=== PATIENT | female | born 1930 | race Caucasian/White ===

== ENCOUNTER 2020-07-04 05:06 | Inpatient (IN) | payer MEDICARE, BC ==
[2020-06-27 15:46] LABS: BASOPHILS % (AUTO) 0.6 % (0-1); EOSINOPHILS # (AUTO) 0.3 X10'3 (0-0.9); EOSINOPHILS % (AUTO) 3.4 % (0-6); LYMPHOCYTES % (AUTO) 24.8 % (21-51); MEAN CORPUSCULAR HEMOGLOBIN 31.4 PG (27.0-31.0); MEAN CORPUSCULAR HGB CONC 33.8 g/dL (33.0-36.5); MEAN PLATELET VOLUME 7.5 FL (7.4-10.4); MONOCYTES # (AUTO) 0.8 X10'3 (0-0.9); MONOCYTES % (AUTO) 9.8 % (2-12); NEUTROPHILS # (AUTO) 5.1 X10'3 (1.8-7.7); NEUTROPHILS % (AUTO) 61.4 % (42-75); PRE OP HEMATOCRIT 40.7 % (35.0-45.0); PRE OP HEMOGLOBIN 13.8 g/dL (12.0-16.0); PRE OP PLATELET COUNT 252 X10'3 (140-440); RED BLOOD COUNT 4.38 X10'6 (4.20-5.60); RED CELL DISTRIBUTION WIDTH 13.3 % (11.5-14.5)
[2020-06-27 16:04] LABS: ALBUMIN/GLOBULIN RATIO 1.1 (1.1-1.5); ALKALINE PHOSPHATASE 97 IU/L (46-116); BLOOD UREA NITROGEN 26 MG/DL (7-18); BUN/CREATININE RATIO 19.5 (6.6-38.0); CALCIUM 10.1 MG/DL (8.5-10.1); CHLORIDE 107 MMOL/L (99-107); CREATININE 1.33 MG/DL (0.40-0.90); PRE OP ALT 27 U/L (30-65); PRE OP ANION GAP 9 (8-16); PRE OP AST 22 U/L (10-37); PRE OP BILIRUB, TOTAL 0.5 MG/DL (0.0-1.0); PRE OP GLUCOSE 125 MG/DL (70-104); PRE OP POTASSIUM 4.2 MMOL/L (3.4-5.1); PRE OP SODIUM 143 MMOL/L (135-145); TOTAL CARBON DIOXIDE 27.4 MMOL/L (24-32); TOTAL PROTEIN 7.8 G/DL (6.4-8.2); eGFR 38 ML/MIN
[2020-07-04] VITALS (19 sets, daily range): BP systolic 111–184; BP diastolic 60–95
[~2020-07-04] VITALS: Ht 172.7 cm; Wt 76.7 kg
[~2020-07-04 05:06] MED LIST: ASCO-336 PO; CALC-336 PO; CHOL20004 PO; FLAX100015 PO; GABA600T13 PO; LACT1CAP65 PO; MULT-1085 PO; VITA-268 PO; VITA400C67 PO; XAL0.005OS EACHEYE; ringers solution, lacted 1,000 ML IV SCH
[2020-07-04] MEDS ORDERED: famotidine 20mg tablet PO ONE (05:30)
[2020-07-04] MEDS ORDERED: NORMAL SALINE IV ONE ×5 (05:30→12:35)
[2020-07-04] MEDS ORDERED: vancomycin 1,500 MG in NS 300ml IV soln IV ONE (05:30)
[2020-07-04] MEDS ORDERED: TRANEXAMIC ACID IV ONE ×5 (05:30→12:35)
[2020-07-04] MEDS ORDERED: ceFAZolin 2gm in dextrose, iso 50 ML IV ONE (05:30)
[2020-07-04] MEDS ORDERED: LIDOcaine 1% (10mg/ml) 2ml vial ONE (06:04)
--- NOTE | 2020-07-04 06:30 | NUR ---
DR FORTUNE AT THE PATIENT'S BEDSIDE. VISUALIZED RIGHT LITTLE TOE WHERE THE TOE NAIL FELL OFF LAST NIGHT. CURRENTLY BANDAID DCI PRESENT (PT APPLIED AT HOME). DISCUSSED PT'S ANTIBIOTIC ALLERGIES, STATES PT WENT TO AN REHABILITATION COUNSELOR AND VANCOMYCIN AND ANCEF ARE OKAY TO ADMINISTER..
[2020-07-04] MEDS ORDERED: fentaNYL/PF 50MCG/1 ML 2ML syringe ONE (07:01)
[2020-07-04] MEDS ORDERED: propofol inj 20 ML IV ONE (07:02)
[2020-07-04] MEDS ORDERED: midazolam 2 mg/2 ml injection ONE (07:02)
[2020-07-04] MEDS ORDERED: ondansetron/PF 4mg/2ml inj ONE (07:02)
[2020-07-04] MEDS ORDERED: LIDOcaine 2% (20mg/ml) 5ml vial ONE (07:02)
[2020-07-04] MEDS ORDERED: ePHEDrine 50MG/ML INJ. ONE (07:05)
[2020-07-04] MEDS ORDERED: sevoflurane 250ml liquid IH ONE (07:05)
[2020-07-04] MEDS ORDERED: phenylephrine 10mg/ml inj. ONE (07:05)
[2020-07-04] MEDS ORDERED: dexamethasone sod phosphate 4mg/ml inj. ONE (07:42)
[2020-07-04] MEDS ORDERED: ROPIVAcaine 0.5% (5mg/ml) 30ml vial ONE (07:52)
[2020-07-04] MEDS ORDERED: albumin (Human) 5% 250ml 250 ML IV ONE ×2 (07:56→08:43)
[2020-07-04] MEDS ORDERED: ROPIVAcaine 0.2% (10 MG/5 ML) BOLUS INJECTION INTERSCALE PRN ×2 (08:15→08:25)
[2020-07-04] MEDS ORDERED: fentaNYL/PF 50MCG/1 ML 2ML syringe IV PRN ×2 (08:15)
[2020-07-04] MEDS ORDERED: ringers solution, lacted 1,000 ML IV SCH (08:15)
[2020-07-04] MEDS ORDERED: morphine 4 MG/ML inj SYRINge IV PRN (08:15)
[2020-07-04] MEDS ORDERED: enalaprilat dihydrate 2.5mg/2ml vial IV PRN (08:15)
[2020-07-04] MEDS ORDERED: morphine 2 MG/ML inj. syringe IV PRN (08:15)
[2020-07-04] MEDS ORDERED: ondansetron/PF 4mg/2ml inj IV PRN ×2 (08:15→09:35)
[2020-07-04] MEDS ORDERED: hydrALAZINE 20mg/ml inj. IV PRN (08:15)
--- NOTE | 2020-07-04 09:28 | NUR ---
RECEIVED FRO OR VIA BED WIT OHTF ACCOMPANIED B ANESTHESIOLOGIST DR MARSHALL, REPORT GIVEN. PT DROWSY BUT AROUSES AND ENIES PAIN AT THIS TIME. 20 GAUGE PIV L HAND PATENT AND RUNNING LR AT 100 ML/HR. R SHOULDER ISLAND DRESSING CDI WITH SHOULDER WRAP, POWDRER PACK AND SLING IN PLACE. PPULSES PALPABLE, BRISK CAP REFILL, SKIN PINK AND WARM, VSS, SCDS APPLIED. UNABLE TO MOVE RUE DT BLOCK, RESTING COMFORTABLY.
[2020-07-04] MEDS ORDERED: HYDROmorphone 1 mg/ml syringe IV PRN (09:35)
[2020-07-04] MEDS: potassium cl 20mEq in 1/2 NS 1,000 ML IV SCH ×2 (09:35→17:18)
[2020-07-04] MEDS ORDERED: oxyCODONE IR 5mg (immed. release) tablet PO PRN (09:35)
[2020-07-04] MEDS ORDERED: diphenhydrAMINE 25mg capsule PO PRN ×2 (09:35)
[2020-07-04] MEDS ORDERED: bisacodyl 10mg suppository rectal RC PRN (09:35)
[2020-07-04] MEDS ORDERED: magnesium hydroxide 30ml (MOM) UD suspension PO PRN (09:35)
[2020-07-04] MEDS ORDERED: acetaminophen 325mg tablet PO PRN (09:35)
[2020-07-04] MEDS ORDERED: HYDROmorphone inj. 0.5 MG/0.5 ML DISP.SYRIN IV PRN (09:35)
[2020-07-04] MEDS: ROPIVAcaine 0.2%/PF PUMP/bolus 550 ML INTERSCALE SCH (10:10)
--- NOTE | 2020-07-04 10:28 | NUR ---
TRANSPORTED VIA BED WITH OHTF ACCOMPANIED BY MYSELF, REPORT GIVEN. PT DROWSY BUT AROUSES AND DENIES PAIN AT THIS TIME. 20 GAUGE PIV L HAND PATENT AND RUNNING LR AT 100 ML/HR. R SHOULDER ISLAND DRESSING CDI WITH SHOULDER WRAP, POWDER PACK AND SLING IN PLACE. PPULSES PALPABLE, BRISK CAP REFILL, SKIN PINK AND WARM, VSS, SCDS APPLIED. UNABLE TO MOVE RUE DT BLOCK, RESTING COMFORTABLY. LEFT IN CARE OF ELENA RN
[2020-07-04] MEDS: ceFAZolin/D5W- 1GM premix 50 ML IV SCH (17:15)
[2020-07-04] MEDS: oxyCODONE IR 5mg (immed. release) tablet PO PRN ×2 (17:15→22:52)
[2020-07-04] MEDS: acetaminophen 325mg tablet PO SCH ×2 (17:15→21:24)
--- NOTE | 2020-07-04 18:40 | NUR ---
Patient in room ORTHO 4015. I have received report from Kiana CASSIDY and had the opportunity to ask questions and assume patient care.
[2020-07-04] MEDS ORDERED: vancomycin/NS 1 GM ADD-VANTAGE 250 ML IV SCH (20:00)
[2020-07-04] MEDS: gabapentin 300mg capsule PO SCH ×2 (20:00→23:39)
[2020-07-04] MEDS: lactobacillus rhamnosus 10,000 MMU CELLS/CAPSULE PO SCH (21:23)
[2020-07-04] MEDS: latanoprost 0.005% 2.5ml ophthalmic drops EACHEYE SCH (21:28)
[2020-07-04] MEDS: sennosides 8.6mg tablet PO SCH (21:28)
[2020-07-05] MEDS: ceFAZolin/D5W- 1GM premix 50 ML IV SCH (00:07)
[2020-07-05] MEDS: potassium cl 20mEq in 1/2 NS 1,000 ML IV SCH ×3 (01:35→17:35)
[2020-07-05 02:00] VITALS: BP 143/73
[2020-07-05] MEDS: acetaminophen 325mg tablet PO SCH ×4 (02:00→20:28)
[2020-07-05] MEDS: gabapentin 300mg capsule PO SCH ×4 (02:00→20:28)
[2020-07-05] MEDS: oxyCODONE IR 5mg (immed. release) tablet PO PRN (05:37)
[2020-07-05 06:00] VITALS: BP 144/70
--- NOTE | 2020-07-05 06:17 | NUR ---
Problems reprioritized. Patient report given, questions answered & plan of care reviewed with Kiana CASSIDY.
[2020-07-05 07:03] LABS: BASOPHILS % (AUTO) 0.2 % (0-1); EOSINOPHILS % (AUTO) 0.1 % (0-6); HEMATOCRIT 34.9 % (35.0-45.0); HEMOGLOBIN 11.7 g/dl (12.0-16.0); LYMPHOCYTES # (AUTO) 1.5 X10'3 (1.1-4.8); LYMPHOCYTES % (AUTO) 10.4 % (21-51); MEAN CORPUSCULAR HEMOGLOBIN 31.1 PG (27.0-31.0); MEAN CORPUSCULAR HGB CONC 33.5 g/dL (33.0-36.5); MEAN CORPUSCULAR VOLUME 92.8 FL (78-98); MONOCYTES # (AUTO) 1.7 X10'3 (0-0.9); MONOCYTES % (AUTO) 11.7 % (2-12); NEUTROPHILS # (AUTO) 11.5 X10'3 (1.8-7.7); NEUTROPHILS % (AUTO) 77.6 % (42-75); PLATELET COUNT 220 X10'3 (140-440); RED BLOOD COUNT 3.76 X10'6 (4.20-5.60); RED CELL DISTRIBUTION WIDTH 13.2 % (11.5-14.5); WHITE BLOOD COUNT 14.8 X10'3 (4.5-11.0)
[2020-07-05 07:30] LABS: ANION GAP 12 (8-16); CHLORIDE 105 MMOL/L (99-107); POTASSIUM 4.1 MMOL/L (3.5-5.1); SODIUM 143 MMOL/L (135-145)
[2020-07-05] MEDS: aspirin 325mg tablet PO SCH (09:01)
[2020-07-05] MEDS: lactobacillus rhamnosus 10,000 MMU CELLS/CAPSULE PO SCH ×2 (09:02→20:28)
--- NOTE | 2020-07-05 14:13 | NUR ---
Joint Replacement Consult: Pt seen by RD for written/verbal high protein ed s/p R shoulder surgery. PO 75% lunch during RD visit. 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 Dietary aware of preferences. Pt is agreeable to almond milk TIDWM; dietary notified. RD encouraged pt to contact dietitian's office if further questions/concerns. To f/u 07/09 for initial assessment. Addendum: 07/05/20 at [address] Amended: Links added.
[2020-07-05 18:00] VITALS: BP 145/67
--- NOTE | 2020-07-05 18:13 | NUR ---
Report to Meera CASSIDY
--- NOTE | 2020-07-05 18:35 | NUR ---
Patient in room ORTHO 4017. I have received report from Kiana CASSIDY and had the opportunity to ask questions and assume patient care.
[2020-07-05] MEDS: celeCOXIB 100mg capsule PO SCH (20:28)
[2020-07-05] MEDS: latanoprost 0.005% 2.5ml ophthalmic drops EACHEYE SCH (20:29)
[2020-07-05] MEDS: sennosides 8.6mg tablet PO SCH (20:32)
[2020-07-05 22:00] VITALS: BP 140/69
[2020-07-06] MEDS: potassium cl 20mEq in 1/2 NS 1,000 ML IV SCH (01:35)
[2020-07-06] MEDS: acetaminophen 325mg tablet PO SCH ×2 (02:50→08:50)
[2020-07-06] MEDS: gabapentin 300mg capsule PO SCH ×4 (02:50→20:00)
[2020-07-06] MEDS: ROPIVAcaine 0.2%/PF PUMP/bolus 550 ML INTERSCALE SCH ×2 (04:52→21:32)
[2020-07-06 06:00] VITALS: BP 117/57
--- NOTE | 2020-07-06 06:24 | NUR ---
Problems reprioritized. Patient report given, questions answered & plan of care reviewed with Jennifer CASSIDY.
[2020-07-06 06:51] LABS: BASOPHILS % (AUTO) 0.2 % (0-1); EOSINOPHILS # (AUTO) 0.1 X10'3 (0-0.9); EOSINOPHILS % (AUTO) 0.8 % (0-6); HEMATOCRIT 31.8 % (35.0-45.0); HEMOGLOBIN 10.8 g/dl (12.0-16.0); LYMPHOCYTES % (AUTO) 19.3 % (21-51); MEAN CORPUSCULAR HEMOGLOBIN 31.7 PG (27.0-31.0); MEAN CORPUSCULAR HGB CONC 33.9 g/dL (33.0-36.5); MEAN CORPUSCULAR VOLUME 93.5 FL (78-98); MEAN PLATELET VOLUME 7.9 FL (7.4-10.4); MONOCYTES # (AUTO) 1.3 X10'3 (0-0.9); MONOCYTES % (AUTO) 12.4 % (2-12); NEUTROPHILS # (AUTO) 6.9 X10'3 (1.8-7.7); NEUTROPHILS % (AUTO) 67.3 % (42-75); PLATELET COUNT 182 X10'3 (140-440); RED CELL DISTRIBUTION WIDTH 13.6 % (11.5-14.5); WHITE BLOOD COUNT 10.3 X10'3 (4.5-11.0)
[2020-07-06] MEDS: aspirin 325mg tablet PO SCH (08:49)
[2020-07-06] MEDS: lactobacillus rhamnosus 10,000 MMU CELLS/CAPSULE PO SCH ×2 (08:50→20:00)
[2020-07-06] MEDS: celeCOXIB 100mg capsule PO SCH ×2 (08:50→20:00)
[2020-07-06] MEDS ORDERED: acetaminophen 325mg tablet PO PRN (09:35)
[2020-07-06 10:00] VITALS: BP 134/80
[2020-07-06 18:00] VITALS: BP 151/66
--- NOTE | 2020-07-06 18:21 | NUR ---
Problems reprioritized. Patient report given, questions answered & plan of care reviewed with Meera CASSIDY.
--- NOTE | 2020-07-06 18:30 | NUR ---
Patient in room ORTHO 4017. I have received report from Jennifer CASSIDY and had the opportunity to ask questions and assume patient care.
[2020-07-06] MEDS: latanoprost 0.005% 2.5ml ophthalmic drops EACHEYE SCH (21:31)
[2020-07-06] MEDS: sennosides 8.6mg tablet PO SCH (21:31)
[2020-07-06 22:00] VITALS: BP 114/62
[2020-07-07] MEDS: gabapentin 300mg capsule PO SCH ×2 (02:18→07:58)
[2020-07-07 06:00] VITALS: BP 144/59
--- NOTE | 2020-07-07 06:19 | NUR ---
Problems reprioritized. Patient report given, questions answered & plan of care reviewed with Jennifer CASSIDY.
[2020-07-07 07:58] LABS: BASOPHILS % (AUTO) 0.4 % (0-1); EOSINOPHILS # (AUTO) 0.2 X10'3 (0-0.9); EOSINOPHILS % (AUTO) 2.3 % (0-6); HEMATOCRIT 35.3 % (35.0-45.0); HEMOGLOBIN 11.9 g/dl (12.0-16.0); LYMPHOCYTES # (AUTO) 2.2 X10'3 (1.1-4.8); LYMPHOCYTES % (AUTO) 22.6 % (21-51); MEAN CORPUSCULAR HEMOGLOBIN 31.9 PG (27.0-31.0); MEAN CORPUSCULAR HGB CONC 33.6 g/dL (33.0-36.5); MEAN CORPUSCULAR VOLUME 94.7 FL (78-98); MEAN PLATELET VOLUME 7.8 FL (7.4-10.4); MONOCYTES # (AUTO) 1.2 X10'3 (0-0.9); MONOCYTES % (AUTO) 11.9 % (2-12); NEUTROPHILS # (AUTO) 6.2 X10'3 (1.8-7.7); NEUTROPHILS % (AUTO) 62.8 % (42-75); PLATELET COUNT 223 X10'3 (140-440); RED BLOOD COUNT 3.72 X10'6 (4.20-5.60); RED CELL DISTRIBUTION WIDTH 13.7 % (11.5-14.5); WHITE BLOOD COUNT 9.8 X10'3 (4.5-11.0)
[2020-07-07] MEDS: lactobacillus rhamnosus 10,000 MMU CELLS/CAPSULE PO SCH (07:58)
[2020-07-07] MEDS: celeCOXIB 100mg capsule PO SCH (07:58)
[2020-07-07] MEDS: aspirin 325mg tablet PO SCH (07:58)
[2020-07-07 10:00] VITALS: BP 129/96
--- NOTE | 2020-07-07 13:48 | NUR ---
Patient ready for discharge, Called report to Priti, gave report to Millicent. All belongings gathered and sent with patient. PIV removed, cannula intact.
== END 2020-07-07 13:39 | DRG 483 ==
LOC: PAS IN 05:06 → EDSTATUS 09:00 → ORTHO 4S 10:45
PROVIDERS: ADMIT Orthopaedic Surgery; ATTEND Orthopaedic Surgery
PROC: 0LS30ZZ Reposition Right Upper Arm Tendon, Open Approach (ICD-10-PCS; 2020-07-04)
PROC: 3E0T3BZ Introduction of Anesthetic Agent into Peripheral Nerves and Plexi, Percutaneous Approach (ICD-10-PCS; 2020-07-04)
PROC: 0RRJ00Z Replacement of Right Shoulder Joint with Reverse Ball and Socket Synthetic Substitute, Open Approach (ICD-10-PCS; principal; 2020-07-04 07:05)
DX: M19.011 Primary osteoarthritis, right shoulder (principal); M65.811 Other synovitis and tenosynovitis, right shoulder; E78.5 Hyperlipidemia, unspecified; G62.9 Polyneuropathy, unspecified; M75.121 Complete rotator cuff tear or rupture of right shoulder, not specified as traumatic; M75.21 Bicipital tendinitis, right shoulder; Z79.899 Other long term (current) drug therapy
CPT/HCPCS: 36415; 76937; 80051; 80053; 82948; 85025; 87081; 87635; 93005; 97110; 97116; 97162; 97530; 97535; A4215; A4565; A4618; A7000; C1776; G0378; J0690; J1100; J2001; J2250; J2370; J2405; J2704; J2795; J3010; J3370; J3480; J7040; J7120; P9045